=== PATIENT | female | born 1970 | race Caucasian/White ===

== ENCOUNTER 2024-12-06 18:36 | Emergency (ER) | payer BC, SELFPAY ==
[2024-12-06 18:38] VITALS: BP 151/82; PULSE 111; RESP 20; TEMP 36; O2SAT 98; BMI 37.3
--- NOTE | 2024-12-06 19:18 | CRLHL7_ITS ---
For Patients: As a result of the Century Cures Act, medical imaging exams and procedure reports are released immediately into your electronic medical record. You may view this report before your referring provider. If you have questions, please contact your health care provider. INDICATION: Upper abdominal pain TECHNIQUE: CT abdomen and pelvis with 120 mL Isovue 370 intravenous contrast. COMPARISON: None. FINDINGS: Lower chest: Unremarkable. Liver: Normal in size and attenuation. No suspicious masses. Gallbladder and bile ducts: Cholecystectomy. Pancreas: Unremarkable. No mass or inflammation. Spleen: Normal in size. No masses. Adrenal glands: Normal in size. No nodules. Kidneys: Normal in size. No suspicious masses, or hydronephrosis. Small nonobstructing renal calculi. GI tract: The stomach is decompressed however there wall thickening of the distal stomach with mucosal enhancement could be seen with peptic ulcer disease/gastritis there is mild diverticulosis. The colon is fluid-filled. Appendectomy change. Vasculature: Abdominal aorta is normal in caliber. Lymph nodes: No lymphadenopathy. Peritoneum/Abdominal Wall: Umbilical and periumbilical fat containing hernias. Pelvis: Unremarkable. No pelvic masses. Bones: Unremarkable for age. IMPRESSION: 1. Nondistended stomach with suggestion of wall thickening of the distal stomach and mucosal enhancement which could be seen with gastritis/peptic ulcer disease. 2. Fluid-filled colon which can be seen with any etiology of diarrhea. Please note that all CT scans at this facility use dose modulation, iterative reconstruction, and/or weight-based dosing when appropriate to reduce radiation dose to as low as reasonably achievable. Dictated by Prudence Woodruff MD @ 12/06/2024 8:42:38 PM (Electronically Signed)
[2024-12-06 19:19] LABS: Appearance Urine Cloudy (Clear); Bilirubin Urine 1+ (Negative); Blood Urine Negative (Negative); Color Urine Yellow (Yellow); Glucose Urine Negative (Negative); Ketones Urine Negative (Negative); Leukocyte Esterase Urine Negative (Negative); Nitrite Urine Negative (Negative); Protein Urine 1+ (Negative); Specific Gravity Urine >= 1.030 (1.000-1.030); Urobilinogen Urine 0.2 (0.2-1.0); pH Urine 5.5 (5.0-8.5)
--- NOTE | 2024-12-06 19:43 | ED_ITS ---
HPI - Abdominal Pain General Date Seen: 12/06/24 Chief Complaint: Abdominal Pain Stated Complaint: Abdominal pain Time Seen by Provider: 12/06/24 19:07 Source: patient Mode of arrival: ambulatory Limitations: no limitations History of Present Illness HPI narrative: Patient is a 54-year-old female presenting to the emergency department for abdominal pain. She states for the past several months she has been having issues with abdominal pain and has been seen multiple times but never was able follow-up with her primary care provider. She states she has never had colonoscopy. Starting 2 days ago she started to have severe stomach pain she states. Insert bilateral upper quadrants. Does not seem to radiate anywhere. Describes it as an 8/10 sharp pain. Pain is not worse with palpation she states. Is having some nausea and fatigue. Has not vomited. Has not taking anything for the nausea. Has tried [id number] pain medication for her abdominal pain without any improvements. She states she has been unable to follow-up because her is her ride and he wanted to bring her. Also states she is head having issues with rectal bleeding. Has last noticed a large amount of rectal bleeding a few months ago but does states she will occasionally see some blood in her stool. She did have a bowel movement today with no blood. She states the bowel movement was otherwise normal. Has had previous cholecystectomy and appendectomy. She initially thought her pain was all from gas and bloating so she was taken stool softeners without any improvement in her symptoms. Denies fevers, chills, chest pain, shortness of breath, weakness, dizziness. She last saw her primary care provider several years ago. Does not know exactly when. Related Data Home Medications ?Medication ?Instructions ?Recorded ?Confirmed No Known Home Medications 12/06/24 12/06/24 Allergies Allergy/AdvReac Type Severity Reaction Status Date / Time azithromycin (From Zithromax) Allergy Unknown Verified 12/06/24 20:23 metoclopramide (From Reglan) Allergy Unknown Verified 12/06/24 20:23 sulfamethoxazole (From Allergy Unknown Verified 12/06/24 20:23 Bactrim) trimethoprim (From Bactrim) Allergy Unknown Verified 12/06/24 20:23 Review of Systems Status of ROS Reports: 10 or more systems reviewed and unremarkable except as noted in History and below PFSH PFS Social History Smoking Status: Current every day smoker Exam Narrative: Exam Narrative: Const: Well-nourished, Well-developed, in mild distress Eyes: PERRL, no conjunctival injection, and symmetrical lids HENT: Atraumatic external nose and ears. Moist mucous membranes. Neck: Symmetric, trachea midline, No thyromegaly. CVS: RRR, No murmurs or gallops. Peripheral pulses 2+ and equal in all extremities RESP: Unlabored respiratory effort. Clear to auscultation bilaterally. GI: Nontender/Nondistended, No rebound or guarding. MSK:Extremities w/o deformity, Normal Active ROM Skin: Warm, Dry. No rashes or lesions. Neuro: Normal Muscle tone, No focal neurological deficits. Psych: Awake, Alert, & Oriented x3. Appropriate mood and affect. Const: Vital Signs, click to edit/add: Vital Signs - 24 hr 12/06/24 18:38 12/06/24 20:30 Temperature 96.8 F L Pulse Rate [Pulse Oximeter] 111 H 92 Respiratory Rate 20 20 Blood Pressure [Ri ght Upper Arm] 151/82 H 139/71 Pulse Oximetry 98 95 Oxygen Delivery Me thod Room Air Room Air Course Vital Signs Vital signs: Initial Vital Signs Temperature 96.8 F L 12/06/24 18:38 Temperature Source Temporal Artery Scan 12/06/24 18:38 Pulse Rate 111 H 12/06/24 18:38 Respiratory Rate 20 12/06/24 18:38 Blood Pressure 151/82 H 12/06/24 18:38 Blood Pressure Mean 105 12/06/24 18:38 Blood Pressure Position Sitting 12/06/24 18:38 Pulse Oximetry 98 12/06/24 18:38 Oxygen Delivery Method Room Air 12/06/24 18:38 Vital Signs Temperature 96.8 F L 12/06/24 18:38 Pulse Rate 111 H 12/06/24 18:38 Respiratory Rate 20 12/06/24 18:38 Blood Pressure 151/82 H 12/06/24 18:38 Pulse Oximetry 98 12/06/24 18:38 Oxygen Delivery Method Room Air 12/06/24 18:38 Temperature 96.8 F L 12/06/24 18:38 Pulse Rate 92 12/06/24 20:30 Respiratory Rate 20 12/06/24 20:30 Blood Pressure 139/71 12/06/24 20:30 Pulse Oximetry 95 12/06/24 20:30 Oxygen Delivery Method Room Air 12/06/24 20:30 Medications Administered Medications: Discontinued Medications Generic Name Dose Route Start Last Admin Trade Name Kamini PRN Reason Stop Dose Admin Ketorolac Tromethamine 15 mg 12/06/24 19:18 12/06/24 19:56 Ketorolac 15 Mg/Ml Inj IVP 12/06/24 19:19 15 mg ONCE ONE Administration Ondansetron HCl 4 mg 12/06/24 19:18 12/06/24 19:56 Ondansetron 2 Mg/Ml Inj IVP 12/06/24 19:19 4 mg ONCE ONE Administration MDM - Abdominal Pain MDM Narrative Medical decision making narrative: Patient is a 54-year-old female presenting for multiple GI complaints. For the abdominal pain differential includes liver disease, pancreatitis, gastroenteritis. Seems unlikely to be liver or spleen lacerations/emerges. Possibly of AAA rupture but seems rather unlikely at this time. Location makes diverticulitis less likely. Is not having any urinary symptoms. Will do a CT scan for better evaluation. Will give her something for nausea and pain. Sometimes this could be a presentation of ACS so EKG and troponin ordered. Will also order a CBC, lipase, CMP, COVID/flu/RSV, urinalysis. Patient's lab work returned showing no concerning abnormalities other than a very mildly elevated potassium. She is otherwise doing well. Pain improved after the Toradol. Nausea she states is the same. CT scan returned showing possible gastritis and/or peptic ulcer disease. Colon Shows possible signs of diarrhea but she is not currently having any diarrhea. I do not believe his potassium requires admission. It is only mildly elevated. Will have her repeat the lab outpatient with the primary care provider. I informed that she needs to follow up. She states she understands. I will give her couple oxycodone for pain management and Zofran for nausea. This was prescribed via instymeds. She is agreeable to this plan. Lab Data Labs: Lab Results 12/06/24 12/06/24 Range/Units 19:00 19:32 WBC 8.46 (4.50-11.00) K/uL RBC 4.00 (4.00-5.20) m/uL Hgb 13.4 (12.0-16.0) gm/dL Hct 40.1 (33.0-51.0) % MCV 100 (80-100) fL MCH 34 (26-34) pg MCHC 33 (32-36) gm/dL RDW Coeff of Jesus 13.7 (11.5-15.5) % Plt Count 316 (140-440) K/uL Neut % (Auto) 63.2 (42.0-72.0) % Lymph % (Auto) 27.4 (20-44) % [place] % (Auto) 8.4 (0.0-11.0) % Eos % (Auto) 0.7 (0.0-7.0) % Baso % (Auto) 0.2 (0.0-3.0) % Neut # (Auto) 5.34 (1.7-7.0) K/uL Lymph # (Auto) 2.32 (0.90-2.90) K/uL [place] # (Auto) 0.70 (0.00-0.90) K/UL Eos # (Auto) 0.06 (0.00-0.50) K/uL Baso # (Auto) 0.02 (0.00-0.30) K/uL Abs Immat Gran (auto) 0.01 (0.00-0.30) K/uL Imm/Tot Granulo (auto) 0.1 % Sodium 134 L (135-149) mmol/L Potassium 5.7 H (3.6-5.1) mmol/L Chloride 105 (96-114) mmol/L Carbon Dioxide 21 (20-32) mmol/L Anion Gap 8 (7-15) mEq/L BUN 22 (7-30) mg/dL Creatinine 0.7 (0.5-1.5) mg/dL Estimated Creat Clear 92.68 Estimated GFR 103 ml/min Glucose 101 (60-115) mg/dL Calcium 9.0 (8.4-10.6) mg/dL Total Bilirubin 1.6 H (0.1-1.5) mg/dL AST 71 H (12-35) U/L ALT 28 (4-35) U/L Alkaline Phosphatase 66 (40-150) U/L Troponin I 0.02 (0.01-0.04) ng/mL Total Protein 8.5 H (6.0-8.3) g/dL Albumin 5.0 (3.3-5.0) g/dL Lipase 66 (23-300) U/L Urine Color Yellow (Yellow) Urine Appearance Cloudy A (Clear) Urine pH 5.5 (5.0-8.5) Ur Specific [place] >= 1.030 (1.000-1.030) Urine Protein 1+ A (Negative) Urine Glucose (UA) Negative (Negative) Urine Ketones Negative (Negative) Urine Blood Negative (Negative) Urine Nitrite Negative (Negative) Urine Bilirubin 1+ A (Negative) Urine Urobilinogen 0.2 (0.2-1.0) Ur Leukocyte Esterase Negative (Negative) Urine RBC 0-2 (0-2) Urine WBC 0-2 (0-5) Ur Squamous Epith Cells Many A (None-Few) Amorphous Sediment Many A (None) Urine Bacteria None (None) SARS-CoV-2 (PCR) Negative SARS-CoV-2 (Negative) Influenza Type A (PCR) Negative PCR FLU A (Negative) Influenza Type B (PCR) Negative PCR FLU B (Negative) RSV (PCR) Negative PCR RSV (Negative) POC Creatinine 0.8 (0.6-1.3) mg/dl Imaging Data CT scan abdomen pelvis: Attestation: I have reviewed the pertinent imaging results. Radiologist's impression: 1. Nondistended stomach with suggestion of wall thickening of the distal stomach and mucosal enhancement which could be seen with gastritis/peptic ulcer disease. 2. Fluid-filled colon which can be seen with any etiology of diarrhea. Please note that all CT scans at this facility use dose modulation, iterative reconstruction, and/or weight-based dosing when appropriate to reduce radiation dose to as low as reasonably achievable. Dictated by Prudence Woodruff MD @ 12/06/2024 8:42:38 PM ECG Data Attestation: I personally reviewed and interpreted this ECG as follows: Prior ECG tracings: not available for review Interpretation: Normal sinus rhythm rate 93 beats per minute, normal intervals, normal axis, no ST or T-wave abnormalities Discharge Plan Discharge Clinical Impression: Hyperkalemia Gastritis Qualifiers: Gastritis type: unspecified gastritis Chronicity: acute Gastritis bleeding: presence of bleeding unspecified Qualified Code(s): K29.00 - Acute gastritis without bleeding Patient Disposition: Home, Self-Care Condition: Stable Instructions: Gastritis (DC), Hyperkalemia (ED) Additional Instructions: Your abdominal pain may be related to gastritis. Use the oxycodone as needed for pain and Zofran for nausea. He also have very mildly elevated potassium. I recommend very close follow-up with her primary care provider. Informed them that you need your potassium rechecked. Return to emergency department for new or worsening symptoms. Prescriptions: No Action No Known Home Medications Follow Up/Referrals: Provider,Not a Local [Primary Care Provider] - Stand Alone Forms: [employer] Info Instructions
[2024-12-06 19:56] LABS: Basophils Absolute Auto 0.02 K/uL (0.00-0.30); Basophils Percent Auto 0.2 % (0.0-3.0); Eosinophils Absolute Auto 0.06 K/uL (0.00-0.50); Eosinophils Percent Auto 0.7 % (0.0-7.0); Hematocrit 40.1 % (33.0-51.0); Hemoglobin* 13.4 gm/dL (12.0-16.0); Immature Granulocytes Abs Auto 0.01 K/uL (0.00-0.30); Immature Granulocytes Pct Auto 0.1 %; Lymphocytes Absolute Auto 2.32 K/uL (0.90-2.90); Lymphocytes Percent Auto 27.4 % (20-44); Mean Corpuscular HGB Conc 33 gm/dL (32-36); Mean Corpuscular Hemoglobin 34 pg (26-34); Mean Corpuscular Volume 100 fL (80-100); Monocytes Percent Auto 8.4 % (0.0-11.0); Neutrophils Absolute Auto 5.34 K/uL (1.7-7.0); Neutrophils Percent Auto 63.2 % (42.0-72.0); Platelet Count* 316 K/uL (140-440); RDW Coefficient of Variation % 13.7 % (11.5-15.5); White Blood Count* 8.46 K/uL (4.50-11.00)
[2024-12-06] MEDS: ONDANSETRON 2 MG/ML inj 4 MG IVP (19:56)
[2024-12-06] MEDS: KETOROLAC 15 MG/ML inj IVP (19:56)
[2024-12-06 20:05] LABS: Creatinine, Point-of-Care* 0.8 mg/dl (0.6-1.3)
[2024-12-06 20:06] LABS: Chloride* 105 mmol/L (96-114); Sodium* 134 mmol/L (135-149)
[2024-12-06 20:07] LABS: Potassium* 5.7 mmol/L (3.6-5.1)
[2024-12-06 20:09] LABS: Alkaline Phosphatase* 66 U/L (40-150); Anion Gap 8 mEq/L (7-15); Aspartate Amino Transferase* 71 U/L (12-35); Bilirubin Total* 1.6 mg/dL (0.1-1.5); Blood Urea Nitrogen* 22 mg/dL (7-30); Carbon Dioxide* 21 mmol/L (20-32); Creatinine* 0.7 mg/dL (0.5-1.5); Est. Creatinine Clearance* 92.68; Estimated Glomerular Filt Rate 103 ml/min; Glucose* 101 mg/dL (60-115); Lipase* 66 U/L (23-300); Total Protein* 8.5 g/dL (6.0-8.3)
[2024-12-06 20:10] LABS: Alanine Aminotransferase* 28 U/L (4-35)
[2024-12-06 20:10] LABS: Amorphous Sediment Urine Many; RBC Urine 0-2 (0-2); Squamous Epithelial Cell Urine Many (None-Few); WBC Urine 0-2 (0-5)
[2024-12-06 20:12] LABS: Slide Review Reflex No
[2024-12-06 20:22] LABS: Troponin I* 0.02 ng/mL (0.01-0.04)
[2024-12-06 20:30] VITALS: BP 139/71; PULSE 92; RESP 20; O2SAT 95
[2024-12-06 20:42] LABS: PCR FLU A Negative PCR FLU A (Negative); PCR FLU B Negative PCR FLU B (Negative); PCR RSV Negative PCR RSV (Negative); SARS PCR* Negative SARS-CoV-2 (Negative)
== END 2024-12-06 21:15 | disposition home or self-care (01) ==
PROVIDERS: Emergency Provider Student in an Organized Health Care Education/Training Program
DX: E87.5 Hyperkalemia (principal); K29.00 Acute gastritis without bleeding
CPT/HCPCS: 36415; 74177; 80053; 81001; 82565; 83690; 84484; 85025; 87631; 93005; 96374; 96375; 99284; 99285; J1885; J2405; Q9967